=== PATIENT | male | born 2000 | race Caucasian/White ===

== ENCOUNTER 2023-03-29 22:36 | Emergency (ER) | payer OTHER ==
[2023-03-29] MEDS ORDERED: TAMIFLU 75MG CA75 MG PO (23:57)
== END 2023-03-30 00:01 | disposition home or self-care (01) ==
LOC: ED 22:36
DX: J10.1 Influenza due to other identified influenza virus with other respiratory manifestations (principal); Z20.822 Contact with and (suspected) exposure to COVID-19